=== PATIENT | female | born 1995 | race Caucasian/White ===

== ENCOUNTER 2016-11-16 10:20 | Emergency (ER) | payer MEDICAID ==
[2016-11-16 10:37] VITALS: BP 122/68
--- NOTE | 2016-11-16 10:37 | ER Document Report ---
ED Medical Screen (RME) - General Stated Complaint: POSSIBLE ABCESS Time seen by provider: 10:36 Mode of Arrival: Ambulatory Information source: Patient Notes: 21-year-old female presents to ED for a abscess to the mons pubis. She states has been there about a week getting larger and more painful. States she's had abscesses before but she has not had MRSA, menstrual period August 2016 has the Implanon I have greeted and performed a rapid initial assessment of this patient. A comprehensive ED assessment and evaluation of the patient, analysis of test results and completion of medical decision making process will be conducted by an additional ED providers. TRAVEL OUTSIDE OF THE [place] IN LAST 30 DAYS: No - Related Data Allergies/Adverse Reactions: No Known Allergies Allergy (Verified 11/16/16 10:35) Past Medical History - Past Medical History Cardiac Medical History: Denies: Hx Coronary Artery Disease, Hx Heart Attack, Hx Hypertension Pulmonary Medical History: Denies: Hx Asthma, Hx Bronchitis, Hx COPD, Hx Pneumonia Neurological Medical History: Reports: Hx Migraine. Denies: Hx Cerebrovascular Accident, Hx Seizures Endocrine Medical History: Reports: Hx Diabetes Mellitus Type 1 Musculoskeltal Medical History: Denies Hx Arthritis Past Surgical History: Reports: Hx Myringotomy - Immunizations Immunizations up to date: Yes Hx Diphtheria, Pertussis, Tetanus Vaccination: Yes
[2016-11-16] MEDS ORDERED: IBUPROFEN 800 MG TABLET PO ONE (10:38)
--- NOTE | 2016-11-16 11:32 | ER Document Report ---
HPI - HPI Patient complains to provider of: abscess Onset: Other - Several days Onset/Duration: Gradual Quality of pain: Throbbing Pain Level: 4 Context: 21-year-old female that shaves her pubic hair is complaining of a small abscess in area with folliculitis. No history of MRSA. No fever. Accu-Chek was 160 this morning which she covered with sliding scale. 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 Associated Symptoms: None Exacerbated by: Denies Relieved by: Denies Similar symptoms previously: Yes Recently seen / treated by doctor: No - ROS ROS below otherwise negative: Yes Systems Reviewed and Negative: Yes All other systems reviewed and negative - REPRODUCTIVE Reproductive: REPORTS: : - DERM Skin Color: Normal Past Medical History - General Information source: Patient - Social History Smoking Status: Current Every Day Smoker Chew tobacco use (# tins/day): No Frequency of alcohol use: Occasional Drug Abuse: None Lives with: Spouse/Significant other Family History: Reviewed & Not Pertinent, Arthritis, CAD, CVA, DM, Hyperlipidemia, Hypertension, Malignancy Patient has suicidal ideation: No Patient has homicidal ideation: No Neurological Medical History: Reports: Hx Migraine Endocrine Medical History: Reports: Hx Diabetes Mellitus Type 1 Renal/ Medical History: Denies: Hx Peritoneal Dialysis Past Surgical History: Reports: Hx Myringotomy - Immunizations Immunizations up to date: Yes Hx Diphtheria, Pertussis, Tetanus Vaccination: Yes Vertical Provider Document - CONSTITUTIONAL Agree With Documented VS: Yes Exam Limitations: No Limitations - INFECTION CONTROL TRAVEL OUTSIDE OF THE [place] IN LAST 30 DAYS: No - HEENT HEENT: Normocephalic - NECK Neck: Supple - RESPIRATORY O2 Sat by Pulse Oximetry: 97 - MUSCULOSKELETAL/EXTREMETIES Musculoskeletal/Extremeties: WANDA GOMES - NEURO Level of Consciousness: Awake, Alert - DERM Integumentary: Abscess - Month pubis folliculitis with one area with a small pustule. No put L.E.T on it and then use a needle to release the pus. Course - Re-evaluation Re-evalutation: 11/16/16 12:35 needle did not get the pus out, will use local lidocaine and #11 blade 11/16/16 12:38 Accu-Chek is 374, she just covered herself with sliding scale. I have consulted with the supervisory physician per [facility] Guidelines. - Vital Signs Vital signs: Temp Pulse Resp BP Pulse Ox 98.2 F 99 18 122/68 97 11/16/16 10:34 11/16/16 10:34 11/16/16 10:34 11/16/16 10:34 11/16/16 10:34 Procedures - Incision and Drainage Groin Time completed: 13:10 Type: Simple Anesthetic type: 1% Lidocaine mL's of anesthetic: 2 Blade size: 11 I&D procedure: Betadine prep applied, Sterile dressing applied Incision Method: Incision made by scalpel Amount/type of drainage: small pus and blood, x cut Discharge - Discharge Clinical Impression: mons pubis abscess, folliculitis, incision and drainage Condition: Good Disposition: HOME, SELF-CARE Instructions: Abscess ([facility]), Trimethoprim-Sulfa ([facility]), Post Incision and Drainage, Acetaminophen, Use of [id number] Ibuprofen ([facility]) Additional Instructions: warm compress tylenol and ibuprofen for pain Do not shaved pubic hair Return to the emergency room if worse Finish the antibiotics Prescriptions: Sulfamethoxazole/Trimethoprim [Sulfamethoxazole-Tmp Ds Tablet] 1 each PO BID # 14 tablet Forms: Return to Work Referrals: KRISTI CHAVES MD [Primary Care Provider] - Follow up as needed
[2016-11-16] MEDS ORDERED: SULFAMETHOXAZOLE/TRIMETHOPRIM 800-160 MG TABLET PO ONE (11:38)
[2016-11-16] MEDS ORDERED: LIDOCAINE 4%/TETRACAINE 0.5%/EPI 0.18% 5 ML TOPICAL SOLN TOP ONE (11:38)
== END 2016-11-16 13:20 | disposition home or self-care (01) ==
LOC: ER 10:20
PROC: 0H9AXZZ Drainage of Inguinal Skin, External Approach (ICD-10-PCS; principal; 2016-11-16)
DX: L02.215 Cutaneous abscess of perineum (principal); L73.9 Follicular disorder, unspecified; E10.9 Type 1 diabetes mellitus without complications; F17.200 Nicotine dependence, unspecified, uncomplicated; Z79.4 Long term (current) use of insulin
CPT/HCPCS: 99283; 82962; 10060; J3490 ×3

== ENCOUNTER 2017-05-20 06:20 | Emergency (ER) | payer SELFPAY ==
[2017-05-20] MEDS ORDERED: INSULIN LISPRO 100 UNIT/ML 3 ML VIAL SUBCUT ONE ×2 (06:40→06:57)
--- NOTE | 2017-05-20 06:53 | ER Document Report ---
ED General - General Chief Complaint: Medication Refill Stated Complaint: MEDICATION REFILL Time Seen by Provider: 05/20/17 06:34 Mode of Arrival: Ambulatory Information source: Patient Notes: 21-year-old female diabetic since 2007 presents with concerns that she has run out of her Humalog is unable to purchase any for 1 week. Patient denies any nausea vomiting denies any symptoms notes her pump is brand-new. Patient checked her blood sugar prior to arrival and it was 164 TRAVEL OUTSIDE OF THE [place] IN LAST 30 DAYS: No - HPI Onset: Just prior to arrival Onset/Duration: Sudden Quality of pain: No pain Severity: None Pain Level: Denies Associated symptoms: None Exacerbated by: Denies Relieved by: Denies Similar symptoms previously: No Recently seen / treated by doctor: No - Related Data Allergies/Adverse Reactions: No Known Allergies Allergy (Verified 11/16/16 10:35) Past Medical History - Social History Smoking Status: Never Smoker Cigarette use (# per day): No Chew tobacco use (# tins/day): No Smoking Education Provided: No Family History: Reviewed & Not Pertinent, Arthritis, CAD, CVA, DM, Hyperlipidemia, Hypertension, Malignancy Patient has suicidal ideation: No Patient has homicidal ideation: No - Past Medical History Cardiac Medical History: Denies: Hx Coronary Artery Disease, Hx Heart Attack, Hx Hypertension Pulmonary Medical History: Denies: Hx Asthma, Hx Bronchitis, Hx COPD, Hx Pneumonia Neurological Medical History: Reports: Hx Migraine. Denies: Hx Cerebrovascular Accident, Hx Seizures Endocrine Medical History: Reports: Hx Diabetes Mellitus Type 1 Renal/ Medical History: Denies: Hx Peritoneal Dialysis Musculoskeltal Medical History: Denies Hx Arthritis Past Surgical History: Reports: Hx Myringotomy - Immunizations Immunizations up to date: Yes Hx Diphtheria, Pertussis, Tetanus Vaccination: Yes Review of Systems - Review of Systems Notes: REVIEW OF SYSTEMS: CONSTITUTIONAL : Denies fever, chills, or sweats. Denies recent illness. EENT: Denies eye, ear, throat, or mouth pain or symptoms. Denies nasal or sinus congestion or discharge. Denies throat, tongue, or mouth swelling or difficulty swallowing. CARDIOVASCULAR: Denies chest pain. Denies palpitations or racing or irregular heart beat. Denies ankle edema. RESPIRATORY: Denies cough, cold, or chest congestion. Denies shortness of breath, difficulty breathing, or wheezing. GASTROINTESTINAL: Denies abdominal pain or distention. Denies nausea, vomiting , or diarrhea. Denies blood in vomitus, stools, or per rectum. Denies black, tarry stools. Denies constipation. GENITOURINARY: Denies difficulty urinating, painful urination, burning, frequency, blood in urine, or discharge. FEMALE GENITOURINARY: Denies vaginal bleeding, heavy or abnormal periods, irregular periods. Denies vaginal discharge or odor. MUSCULOSKELETAL: Denies back or neck pain or stiffness. Denies joint pain or swelling. SKIN: Denies rash, lesions or sores. HEMATOLOGIC : Denies easy bruising or bleeding. LYMPHATIC: Denies swollen, enlarged glands. NEUROLOGICAL: Denies confusion or altered mental status. Denies passing out or loss of consciousness. Denies dizziness or lightheadedness. Denies headache. Denies weakness or paralysis or loss of use of either side. Denies problems with gait or speech. Denies sensory loss, numbness, or tingling. Denies seizures. PSYCHIATRIC: Denies anxiety or stress. Denies depression, suicidal ideation, or homicidal ideation. ALL OTHER SYSTEMS REVIEWED AND NEGATIVE. PHYSICAL EXAMINATION: GENERAL: Well-appearing, well-nourished and in no acute distress. HEAD: Atraumatic, normocephalic. EYES: Pupils equal round and reactive to light, extraocular movements intact, conjunctiva are normal. ENT: Nares patent, oropharynx clear without exudates. Moist mucous membranes. NECK: Normal range of motion, supple without lymphadenopathy LUNGS: Breath sounds clear to auscultation bilaterally and equal. No wheezes rales or rhonchi. HEART: Regular rate and rhythm without murmurs ABDOMEN: Soft, nontender, nondistended abdomen. No guarding, no rebound. No masses appreciated. Pump in place Female : deferred Musculoskeletal: Normal range of motion, no pitting or edema. No cyanosis. NEUROLOGICAL: Cranial nerves grossly intact. Normal speech, normal gait. Normal sensory, motor exams PSYCH: Normal mood, normal affect. SKIN: Warm, Dry, normal turgor, no rashes or lesions noted. Dictation was performed using [employer] voice recognition software Course - Re-evaluation Re-evalutation: 05/20/17 06:51 Patient requests Humalog, states she does not have the money to purchase it, I have requested the nurse give her the bottle of Humalog to last her the week until she can actually receive her medication. Otherwise being without her insulin can lead the patient to go into DKA or other life-threatening hyperglycemic events therefore I believe this is the most cost effective and most appropriate treatment rather than patient coming back daily. 05/20/17 06:55 After performing a Medical Screening Examination, I estimate there is LOW risk for ACUTE APPENDICITIS, BOWEL OBSTRUCTION, ACUTE CHOLECYSTITIS, PERFORATED DIVERTICULITIS, INCARCERATED HERNIA, PANCREATITIS, PELVIC INFLAMMATORY DISEASE, PERFORATED ULCER, ECTOPIC , or TUBO-OVARIAN ABSCESS, thus I consider the discharge disposition reasonable. Also, there is no evidence or peritonitis , sepsis, or toxicity. I have reevaluated this patient multiple times and no significant life threatening changes are noted. The patient and I have discussed the diagnosis and risks, and we agree with discharging home with close follow-up with the understanding that symptoms and presentations can change. We also discussed returning to the Emergency Department immediately if new or worsening symptoms occur. We have discussed the symptoms which are most concerning (e.g., bloody stool, fever, changing or worsening pain, vomiting) that necessitate immediate return. Discharge - Discharge Clinical Impression: Medication refill, Hyperglycemia Condition: Stable Disposition: HOME, SELF-CARE Additional Instructions: You must follow-up with your primary care physician for further Humalog return immediately if there is any life-threatening issues
== END 2017-05-20 07:02 | disposition home or self-care (01) ==
LOC: ER 06:20
DX: Z76.0 Encounter for issue of repeat prescription (principal); E11.65 Type 2 diabetes mellitus with hyperglycemia; Z79.4 Long term (current) use of insulin
CPT/HCPCS: 99282; 82962; J1815

== ENCOUNTER 2019-03-18 20:51 | Emergency (ER) | payer BC, MEDICAID ==
[2019-03-18 21:49] LABS: ABSOLUTE BASOPHILS # (AUTO) 0.2 10^3/uL (0.0-0.2); ABSOLUTE EOSINOPHILS # (AUTO) 0.4 10^3/uL (0.0-0.6); ABSOLUTE LYMPHOCYTES (AUTO) 5.2 10^3/uL (0.5-4.7); ABSOLUTE MONOCYTES (AUTO) 1.1 10^3/uL (0.1-1.4); ABSOLUTE NEUT (AUTO) 10.6 10^3/uL (1.7-8.2); BASOPHILS % (AUTO) 0.9 % (0-2); EOSINOPHILS % (AUTO) 2.2 % (0-6); HEMOGLOBIN 14.9 g/dL (12.0-15.5); LYMPHOCYTES % (AUTO) 29.7 % (13-45); MEAN CORPUSCULAR HEMOGLOBIN 31.2 pg (27.0-33.4); MEAN CORPUSCULAR HGB CONC 33.9 g/dL (32.0-36.0); MEAN CORPUSCULAR VOLUME 92 fl (80-97); MONOCYTES % (AUTO) 6.5 % (3-13); PLATELET COUNT 370 10^3/uL (150-450); RED BLOOD COUNT 4.78 10^6/uL (3.72-5.28); RED CELL DISTRIBUTION WIDTH 13.2 % (11.5-14.0); SEGMENTED NEUTROPHILS % (AUTO) 60.7 % (42-78); TOTAL CELLS COUNTED % (AUTO) 100 %; WHITE BLOOD COUNT 17.5 10^3/uL (4.0-10.5)
[2019-03-18 22:47] LABS: APPEARANCE,URINE CLEAR; BILIRUBIN,URINE NEGATIVE (NEGATIVE); COLOR,URINE STRAW; GLUCOSE, URINE >=500 mg/dL (NEGATIVE); KETONES,URINE NEGATIVE (NEGATIVE); LEUKOCYTE ESTERASE,URINE NEGATIVE (NEGATIVE); NITRITE,URINE NEGATIVE (NEGATIVE); PROTEIN,URINE NEGATIVE (NEGATIVE); UROBILINOGEN,URINE NEGATIVE mg/dL (<2.0)
--- NOTE | 2019-03-19 00:15 | RADIOLOGY REPORT (SQ) ---
EXAM DESCRIPTION: US TRANSVAGINAL COMPLETED DATE/TME: 03/18/2019 22:48 CLINICAL HISTORY: 23 years Female, abd cramping early bleeding COMPARISON: None. TECHNIQUE: Complete first trimester obstetrical ultrasound with transvaginal imaging. FINDINGS: Uterus: Uterus measures 6.9 x 4.5 x 3.7 cm. No myometrial abnormalities. Gestational sac: Not identified. pole: Not identified. heart motion: Not identified. Yolk sac: Not identified. Placenta: Not identified. Right ovary: The right ovary measures 2.1 x 1.2 x 1.4 cm Left ovary: The left ovary measures 3.2 x 1.1 x 1.2 cm. Adnexa: There is a nonspecific simple cystic structure in the right adnexa measuring 1.4 x 0.9 x 1.6 cm. No pole or yolk sac identified within this structure. Free fluid: No free pelvic fluid. Duplex imaging: Color and spectral Doppler imaging of the ovaries demonstrates blood flow bilaterally. IMPRESSION: 1. No intrauterine identified. Differential considerations include ectopic , miscarriage, and early normal . 2. There is a nonspecific simple appearing cystic structure in the right adnexa measuring 1.6 cm in greatest dimension. No pole or yolk sac identified within this structure. No free pelvic fluid. This could represent an ectopic but is not specific for ectopic . Close continued clinical, laboratory, and sonographic follow-up recommended.
--- NOTE | 2019-03-19 02:41 | ER Document Report ---
ED General - General Chief Complaint: OB Problem (<20wks) Stated Complaint: STOMACH CRAMPING Time Seen by Provider: 03/18/19 22:47 TRAVEL OUTSIDE OF THE [place] IN LAST 30 DAYS: No - HPI Notes: Patient is a 23-year-old female that presents to the emergency department for chief complaint of vaginal bleeding. Patient is M1. LMP was 01/29/2019. She states she has had 4 home positive test. Patient began having lower abdominal cramping that is suprapubic and intermittent today. She also reports some dark brown vaginal discharge earlier that became light pink this evening. She has not established with ELECTRICAL TEST ENGINEER yet. She is in the process of quitting smoking. She is concerned she may be having a miscarriage since her previous ended in miscarriage. Patient has been trying to get . Currently she states she is not having any symptoms including pain. Past Medical History: Diabetes Past Surgical History: D&C Social History: Daily tobacco, denies drug and alcohol. Family History: Reviewed and noncontributory for presenting illness Allergies: Reviewed, see documented allergy list. REVIEW OF SYSTEMS: CONSTITUTIONAL : No fever No chills No diaphoresis No recent illness EENT: No vision changes No congestion No sore throat CARDIOVASCULAR: No chest pain No palpitations RESPIRATORY: No shortness of breath No cough No difficulty breathing GASTROINTESTINAL: abdominal pain No nausea No vomiting No diarrhea GENITOURINARY: Vaginal bleeding No dysuria No hematuria No difficulty urinating MUSCULOSKELETAL: No back pain No leg pain No arm pain SKIN: No rashes No lesions LYMPHATIC: No swollen, enlarged glands. NEUROLOGICAL: No lightheadedness No headache No weakness No paresthesias PSYCHIATRIC: No anxiety No depression PHYSICAL EXAMINATION: Vital signs reviewed, nursing noted reviewed. GENERAL: Well-appearing, well-nourished and in no acute distress. HEAD: Atraumatic, normocephalic. EYES: Eyes appear normal, extraocular movements intact, sclera anicteric, conjunctiva are normal. ENT: nares patent, oropharynx clear without exudates. Moist mucous membranes. NECK: Normal range of motion, supple without lymphadenopathy LUNGS: Breath sounds clear to auscultation bilaterally and equal. No wheezes rales or rhonchi. HEART: Regular rate and rhythm without murmurs ABDOMEN: Soft, nontender, normoactive bowel sounds. No rebound, guarding, or rigidity. No masses appreciated. EXTREMITIES: Nontender, good range of motion, no pitting or edema. NEUROLOGICAL: No focal neurological deficits. Moves all extremities spontaneously Motor and sensory grossly intact on exam. PSYCH: Normal mood, normal affect. SKIN: Warm, Dry, normal turgor, no rashes or lesions noted on exposed skin - Related Data Allergies/Adverse Reactions: No Known Allergies Allergy (Verified 11/16/16 10:35) Past Medical History - Social History Smoking Status: Current Every Day Smoker Family History: Reviewed & Not Pertinent, Arthritis, CAD, CVA, DM, Hyperlipidemia, Hypertension, Malignancy Patient has suicidal ideation: No Patient has homicidal ideation: No - Past Medical History Cardiac Medical History: Denies: Hx Coronary Artery Disease, Hx Heart Attack, Hx Hypertension Pulmonary Medical History: Denies: Hx Asthma, Hx Bronchitis, Hx COPD, Hx Pneumonia Neurological Medical History: Reports: Hx Migraine. Denies: Hx Cerebrovascular Accident, Hx Seizures Endocrine Medical History: Reports: Hx Diabetes Mellitus Type 1 Renal/ Medical History: Denies: Hx Peritoneal Dialysis Musculoskeletal Medical History: Denies Hx Arthritis Past Surgical History: Reports: Hx Myringotomy - Immunizations Immunizations up to date: Yes Hx Diphtheria, Pertussis, Tetanus Vaccination: Yes Physical Exam - Vital signs Vitals: Temp Pulse Resp BP Pulse Ox 98.2 F 91 20 127/72 H 99 03/18/19 21:19 03/18/19 21:19 03/18/19 21:19 03/18/19 21:19 03/18/19 21:19 Course - Re-evaluation Re-evalutation: 03/19/19 02:46 Vitals reviewed. Nursing notes reviewed. Patient does have a mild leukocytosis but is well-appearing with no urinary tract infection. Her leukocytosis is likely related to her current . She is currently asymptomatic with a benign abdominal exam. Patient's hCG level is low at 12 and there is no intra uterine gestation visualized on ultrasound because of how early she is in the . I did explain to her that ectopic cannot be excluded given the ultrasound results. Patient will follow with gynecology for repeat hCG levels in the next 24 to 48 hours. She did receive RhoGam in the ED today. Patient was counseled on return precautions and verbalized understanding. She is stable at discharge. Laboratory 03/18/19 03/18/19 03/18/19 21:27 21:27 21:27 WBC 17.5 H RBC 4.78 Hgb 14.9 Hct 44.0 MCV 92 MCH 31.2 MCHC 33.9 RDW 13.2 Plt Count 370 Seg Neutrophils % 60.7 Lymphocytes % 29.7 Monocytes % 6.5 Eosinophils % 2.2 Basophils % 0.9 Absolute Neutrophils 10.6 H Absolute Lymphocytes 5.2 H Absolute Monocytes 1.1 Absolute Eosinophils 0.4 Absolute Basophils 0.2 Beta HCG, Quant 12.22 H Total Beta HCG POSITIVE Urine Color Urine Appearance Urine pH Ur Specific Mertens Urine Protein Urine Glucose (UA) Urine Ketones Urine Blood Urine Nitrite Urine Bilirubin Urine Urobilinogen Ur Leukocyte Esterase Urine WBC (Auto) Urine Bacteria (Auto) Squamous Epi Cells Auto Urine Mucus (Auto) Urine Ascorbic Acid Blood Type O NEGATIVE Antibody Screen POSITIVE Antibody Identification Anti-E Antigen Identification Cancelled Rhogam Indicated RHOGAM REQUESTED 03/18/19 03/19/19 21:55 02:15 WBC RBC Hgb Hct MCV MCH MCHC RDW Plt Count Seg Neutrophils % Lymphocytes % Monocytes % Eosinophils % Basophils % Absolute Neutrophils Absolute Lymphocytes Absolute Monocytes Absolute Eosinophils Absolute Basophils Beta HCG, Quant Total Beta HCG Urine Color STRAW Urine Appearance CLEAR Urine pH 7.0 Ur Specific Mertens 1.030 Urine Protein NEGATIVE Urine Glucose (UA) >=500 H Urine Ketones NEGATIVE Urine Blood MODERATE H Urine Nitrite NEGATIVE Urine Bilirubin NEGATIVE Urine Urobilinogen NEGATIVE Ur Leukocyte Esterase NEGATIVE Urine WBC (Auto) 1 Urine Bacteria (Auto) TRACE Squamous Epi Cells Auto 4 Urine Mucus (Auto) RARE Urine Ascorbic Acid NEGATIVE Blood Type Antibody Screen Antibody Identification Antigen Identification E Antigen - NEGATIVE Rhogam Indicated Transvaginal US 03/18/19 22:48 IMPRESSION: 1. No intrauterine identified. Differential considerations include ectopic , miscarriage, and early normal . 2. There is a nonspecific simple appearing cystic structure in the right adnexa measuring 1.6 cm in greatest dimension. No pole or yolk sac identified within this structure. No free pelvic fluid. This could represent an ectopic but is not specific for ectopic . Close continued clinical, laboratory, and sonographic follow-up recommended. - Vital Signs Vital signs: Temp Pulse Resp BP Pulse Ox 98.2 F 91 20 127/72 H 99 03/18/19 21:19 03/18/19 21:19 03/18/19 21:19 03/18/19 21:19 03/18/19 21:19 - Laboratory Result Diagrams: 03/18/19 21:27 Laboratory results interpreted by me: 03/18/19 03/18/19 03/18/19 21:27 21:27 21:55 WBC 17.5 H Absolute Neutrophils 10.6 H Absolute Lymphocytes 5.2 H Beta HCG, Quant 12.22 H Urine Glucose (UA) >=500 H Urine Blood MODERATE H Discharge - Discharge Clinical Impression: Pelvic pain affecting Qualifiers: Trimester: first trimester Qualified Code(s): O26.891 - Other specified related conditions, first trimester; R10.2 - Pelvic and perineal pain Condition: Stable Disposition: HOME, SELF-CARE Instructions: Ectopic Precaution ([facility]) Additional Instructions: Please return to the emergency department if you have any worsening, or concern of your symptoms. Please return to the emergency department if you develop chest pain, difficulty breathing, severe abdominal pain, or ongoing vomiting. Please follow-up with your primary care physician in 2-3 days and any other recommended physicians. If prescribed, take all medications as directed. If you have any questions or concerns do not hesitate to return the emergency department for evaluation. You are too early in your to visualize anything on ultrasound. For this reason we cannot completely exclude ectopic . There was a non specific finding on your ultrasound which may be an early ectopic . It is important that you follow with [facility] ENGINE[facility] in the next 24 to 48 hours for repeat hormone levels and abdominal exam. Forms: Return to Work Referrals: [facility] [Provider Group] - 03/20/19
[2019-03-19 02:59] VITALS: BP 132/75
== END 2019-03-19 03:00 | disposition home or self-care (01) ==
LOC: ER 20:51
DX: O26.891 Other specified pregnancy related conditions, first trimester (principal); R10.2 Pelvic and perineal pain; N89.8 Other specified noninflammatory disorders of vagina; O99.331 Smoking (tobacco) complicating pregnancy, first trimester; O99.111 Other diseases of the blood and blood-forming organs and certain disorders involving the immune mechanism complicating pregnancy, first trimester; D72.829 Elevated white blood cell count, unspecified; O24.011 Pre-existing type 1 diabetes mellitus, in pregnancy, first trimester; E10.9 Type 1 diabetes mellitus without complications; Z3A.01 Less than 8 weeks gestation of pregnancy; Z87.59 Personal history of other complications of pregnancy, childbirth and the puerperium
CPT/HCPCS: 99284; 86900; 86901; 36415; 86870; 86850; 84702; 85025; 81001; 86902; 76817; 93976; J2790

== ENCOUNTER 2019-03-19 19:11 | Emergency (ER) | payer BC, MEDICAID ==
--- NOTE | 2019-03-19 20:40 | ER Document Report ---
ED Medical Screen (RME) - General Chief Complaint: OB Problem (<20wks) Stated Complaint: VAGINAL BLEEDING Time Seen by Provider: 03/19/19 20:35 TRAVEL OUTSIDE OF THE [place] IN LAST 30 DAYS: No - HPI Notes: 03/19/19 20:38 Patient is a G3, P1 approximately 4-5 weeks by gestation who presents with continued bleeding since yesterday. Patient states that she took 4 home tests that were positive about a week ago and was seen yesterday and had an hCG quantitative number of 12. Patient states that she was supposed to have another hCG count performed tomorrow, but has continued bleeding and wanted evaluated again today. She had an unremarkable ultrasound yesterday as well. No other concerns or complaints. Denies COLE, fever, neck pain, URI, CP, SOB, dysuria, back pain, or rash. I have treated and performed a rapid initial assessment of this patient. A comprehensive ED assessment and evaluation of the patient, analysis of test results and completion of medical decision making process will be conducted by additional ED providers. PHYSICAL EXAMINATION: GENERAL: Well-appearing, well-nourished and in no acute distress. A&Ox4. Answers questions appropriately. LUNGS: Breath sounds clear to auscultation bilaterally and equal. No wheezes rales or rhonchi. HEART: Regular rate and rhythm without murmurs, rubs, gallops. - Related Data Allergies/Adverse Reactions: No Known Allergies Allergy (Verified 11/16/16 10:35) Past Medical History - Past Medical History Cardiac Medical History: Denies: Hx Coronary Artery Disease, Hx Heart Attack, Hx Hypertension Pulmonary Medical History: Denies: Hx Asthma, Hx Bronchitis, Hx COPD, Hx Pneumonia Neurological Medical History: Reports: Hx Migraine. Denies: Hx Cerebrovascular Accident, Hx Seizures Endocrine Medical History: Reports: Hx Diabetes Mellitus Type 1 Renal/ Medical History: Denies: Hx Peritoneal Dialysis Musculoskeltal Medical History: Denies Hx Arthritis Past Surgical History: Reports: Hx Myringotomy - Immunizations Immunizations up to date: Yes Hx Diphtheria, Pertussis, Tetanus Vaccination: Yes Physical Exam - Vital signs Vitals: Temp Pulse Resp BP Pulse Ox 98.1 F 79 18 118/66 97 03/19/19 19:32 03/19/19 19:32 03/19/19 19:32 03/19/19 19:32 03/19/19 19:32 Course - Vital Signs Vital signs: Temp Pulse Resp BP Pulse Ox 98.1 F 79 18 118/66 97 03/19/19 19:32 03/19/19 19:32 03/19/19 19:32 03/19/19 19:32 03/19/19 19:32
--- NOTE | 2019-03-19 22:25 | ER Document Report ---
ED General - General Chief Complaint: OB Problem (<20wks) Stated Complaint: VAGINAL BLEEDING Time Seen by Provider: 03/19/19 20:35 Mode of Arrival: Ambulatory Information source: Patient TRAVEL OUTSIDE OF THE [place] IN LAST 30 DAYS: No - HPI Patient complains to provider of: Increased vaginal bleeding, decreased hCG Onset: Yesterday Onset/Duration: Gradual Quality of pain: Cramping Severity: Moderate Pain Level: 3 Associated symptoms: None Exacerbated by: Denies Relieved by: Denies Similar symptoms previously: No Recently seen / treated by doctor: No Notes: 23-year-old female coming in today for recheck. Having vaginal bleeding in early . Was seen here yesterday. Had hCG of about 12. She was having a little bit of spotting as well. She got worked up. She got RhoGam. Told to come back today. Patient is not noting horrible cramping but is a little bit more symptomatic today. Now when she wipes she is seeing more blood than she was yesterday. Her beta hCG yesterday was around 12 and today is at 6. - Related Data Allergies/Adverse Reactions: No Known Allergies Allergy (Verified 11/16/16 10:35) Past Medical History - General Information source: Patient, Parent Last Menstrual Period: 01/29/2019 - Social History Smoking Status: Current Every Day Smoker Frequency of alcohol use: Rare Drug Abuse: None Family History: Reviewed & Not Pertinent, Arthritis, CAD, CVA, DM, Hyperlipidemia, Hypertension, Malignancy Patient has suicidal ideation: No Patient has homicidal ideation: No - Past Medical History Cardiac Medical History: Denies: Hx Coronary Artery Disease, Hx Heart Attack, Hx Hypertension Pulmonary Medical History: Denies: Hx Asthma, Hx Bronchitis, Hx COPD, Hx Pneumonia Neurological Medical History: Reports: Hx Migraine. Denies: Hx Cerebrovascular Accident, Hx Seizures Endocrine Medical History: Reports: Hx Diabetes Mellitus Type 1 Renal/ Medical History: Denies: Hx Peritoneal Dialysis Musculoskeletal Medical History: Denies Hx Arthritis Past Surgical History: Reports: Hx Gynecologic Surgery - D&C, Hx Myringotomy - Immunizations Immunizations up to date: Yes Hx Diphtheria, Pertussis, Tetanus Vaccination: Yes Review of Systems - Review of Systems Notes: Constitutional: No fevers. No chills. EENT: No eye redness. No eye pain. No ear pain. No sore throat. Cardiovascular: No chest pain. No palpitations. Respiratory: No cough. No shortness of breath. No respiratory distress. Gastrointestinal: No abdominal pain. No nausea, vomiting, or diarrhea. Genitourinary: Positive for pelvic cramping, positive for vaginal bleeding Musculoskeletal: Atraumatic. No swelling. No deformities. Skin: No rash or lesions. Lymphatic: No swollen lymph nodes. Neurologic: No headache. No syncope. Psychiatric: No suicidal or homicidal ideation. Physical Exam - Vital signs Vitals: Temp Pulse Resp BP Pulse Ox 98.1 F 79 18 118/66 97 03/19/19 19:32 03/19/19 19:32 03/19/19 19:32 03/19/19 19:32 03/19/19 19:32 - Notes Notes: General: Well-developed, well-nourished. In no acute distress. Non-toxic appearing. Cardiac: Well-perfused. Regular rate and rhythm. No murmurs, rubs, or gallops. Pulmonary: No respiratory distress. No cyanosis. Bilateral lung fiels are clear to auscultation. Abdominal: Non-distended. Non-rigid. Bowels sounds are present in all four quadrants. No guarding or rebound. HEENT: Head is atraumatic. Conjunctivae not reddened. No tearing. PERRL. EOMI. Orbits atraumatic. No periorbital swelling or erythema. Oropharynx is without erythema, swelling, or exudates. Neck: Supple. No adenopathy. No meningismus. Dermatologic: Warm with good turgor. No rash. Atraumatic. Chest: Atraumatic. No chest wall tenderness to palpation. Musculoskeletal: Moves all extremities well. No range of motion deficits. no muscular or joint tenderness. No paraspinal muscle tenderness. no midline spinal tenderness or step-off. Genitourinary: Examination deferred Neurologic: No gross neurologic deficits. Psychiatric: Normal mood. Course - Re-evaluation Re-evalutation: 03/19/19 22:23 Patient's numbers have dropped from 12 to 6. She already received RhoGam. She has follow-up with OB tomorrow. Told her that I think this is most likely a miscarriage of the early first trimester. She will follow-up tomorrow with OB for further instructions - Vital Signs Vital signs: Temp Pulse Resp BP Pulse Ox 98.1 F 79 18 118/66 97 03/19/19 19:32 03/19/19 19:32 03/19/19 19:32 03/19/19 19:32 03/19/19 19:32 Discharge - Discharge Clinical Impression: Miscarriage Condition: Good Disposition: HOME, SELF-CARE Instructions: Miscarriage ([facility]) Additional Instructions: Follow-up with the OB tomorrow. Drink plenty of fluids. Get plenty of rest. Tylenol as needed for pain. Referrals: KENRICK MCDOWELL MD [ACTIVE STAFF] - Follow up tomorrow
[2019-03-19 22:46] VITALS: BP 116/62
== END 2019-03-19 22:45 | disposition home or self-care (01) ==
LOC: ER 19:11
DX: O03.9 Complete or unspecified spontaneous abortion without complication (principal)
CPT/HCPCS: 36415; 84702; 99284

== ENCOUNTER → 2019-03-20 | Outpatient (CLI) | payer BC, MEDICAID | LOC: OD 16:43 | PROVIDERS: ATTEND Student in an Organized Health Care Education/Training Program | DX: O26.851 Spotting complicating pregnancy, first trimester (principal); Z41.8 Encounter for other procedures for purposes other than remedying health state | CPT/HCPCS: 36415; 83036; 84702; 86850; 86870 ==